=== PATIENT | female | born 1945 | race African-American/Black ===

== ENCOUNTER 2017-03-02 15:22 | Emergency (ER) | payer SELFPAY ==
[~2017-03-02] VITALS: Ht 162.6 cm; Wt 66.0 kg
[2017-03-02 15:25] VITALS: BP 94/60
== END 2017-03-02 17:14 | disposition left against medical advice (07) ==
LOC: ER 15:26
DX: R11.2 Nausea with vomiting, unspecified (principal); R00.2 Palpitations; I12.0 Hypertensive chronic kidney disease with stage 5 chronic kidney disease or end stage renal disease; N18.6 End stage renal disease; E03.9 Hypothyroidism, unspecified; Z99.2 Dependence on renal dialysis
CPT/HCPCS: 99283